=== PATIENT | female | born 1995 | race African-American/Black ===

== ENCOUNTER 2019-04-05 20:44 | Emergency (ER) | payer MEDICAID ==
[~2019-04-05] VITALS: Ht 162.6 cm; Wt 53.0 kg
[2019-04-05] MEDS ORDERED: ONDANSETRON HCL 4MG/2ML INJ IV STA (22:14)
[2019-04-05] MEDS ORDERED: SODIUM CHLORIDE 0.9% 1,000 ML IV ONE (22:14)
[2019-04-05] MEDS ORDERED: LORAZEPAM 2MG/ML CPJ IV ONE (22:15)
[2019-04-05 22:54] LABS: HEMATOCRIT. 30.5 % (36.0-48.0); HEMOGLOBIN. 9.6 g/dL (12.0-16.0); MEAN CORPUSCULAR HEMOGLOBIN 21.7 pg (28.0-32.0); MEAN CORPUSCULAR VOLUME 68.9 fL (81.0-99.0); MEAN PLATELET VOLUME 8.8 fl (7.4-10.4); PLATELET 358 x1000/uL (130-400); RED BLOOD CELL COUNT 4.42 mill/uL (4.2-5.4); RED CELL DISTRIBUTION WIDTH 20.8 % (11.6-14.6)
[2019-04-05 23:01] LABS: CHLORIDE 109 mEq/L (98-107)
[2019-04-05 23:05] LABS: ETHANOL BLOOD < 10 mg/dL
[2019-04-05 23:08] LABS: HCG SCREEN NEGATIVE
[2019-04-05 23:11] LABS: *AMPHETAMINES SCREEN URINE NEGATIVE (NEGATIVE); *BARBITURATES SCREEN URINE NEGATIVE (NEGATIVE); *COCAINE SCREEN URINE NEGATIVE (NEGATIVE)
[2019-04-05 23:12] LABS: *BENZODIAZEPINES SCREEN URINE NEGATIVE (NEGATIVE); METHADONE URINE SCREEN NEGATIVE (NEGATIVE); OPIATES URINE SCREEN NEGATIVE (NEGATIVE); PHENCYCLIDINE URINE SCREEN NEGATIVE (NEGATIVE)
[2019-04-05 23:13] LABS: CANNABINOID URINE SCREEN PRESUMTIVE POSITIVE (NEGATIVE)
[2019-04-05 23:24] LABS: PLATELET ESTIMATE NORMAL
[2019-04-06 01:01] VITALS: BP 114/70
== END 2019-04-06 01:02 | disposition home or self-care (01) ==
LOC: ER 20:44
DX: R06.02 Shortness of breath (principal); E86.0 Dehydration; D64.9 Anemia, unspecified; R06.4 Hyperventilation
CPT/HCPCS: 36415; 71045; 80053; 80305; 80320; 83690; 84703; 85025; 93005; 96361; 96374; 96375; 99284; J2060; J2405; J7030; G0480

== ENCOUNTER 2020-08-18 12:15 | Emergency (ER) | payer MEDICAID ==
[~2020-08-18] VITALS: Ht 167.6 cm; Wt 56.0 kg
[2020-08-18] MEDS ORDERED: KETOROLAC 60MG/2ML VIAL IM STA (12:26)
[2020-08-18 13:09] LABS: CLARITY URINE CLEAR (CLEAR); COLOR URINE YELLOW (YELLOW); KETONES URINE 1+ (NEGATIVE); LEUKOCYTE ESTERASE URINE NEGATIVE (NEGATIVE); NITRITE URINE NEGATIVE (NEGATIVE); OCCULT BLOOD URINE NEGATIVE (NEGATIVE); PH URINE 5.5 (4.5-8.0); PROTEIN URINE 2+ (NEGATIVE)
[2020-08-18 13:18] LABS: BASOPHILS % 0.8 % (0.0-2.0); HEMATOCRIT. 33.1 % (36.0-48.0); HEMOGLOBIN. 11.2 g/dL (12.0-16.0); LYMPHOCYTES % 16.4 % (20.0-50.0); MEAN CORPUSCULAR HEMOGLOBIN 27.4 pg (28.0-32.0); MEAN CORPUSCULAR VOLUME 80.6 fL (81.0-99.0); MEAN PLATELET VOLUME 8.5 fl (7.4-10.4); MONOCYTES % 4.5 % (2.0-8.0); NEUTROPHILS % 75.3 % (40.0-76.0); PLATELET 281 x1000/uL (130-400); RED CELL DISTRIBUTION WIDTH 19.2 % (11.6-14.6)
[2020-08-18 13:28] LABS: CHLORIDE 114 mEq/L (98-107)
[2020-08-18] MEDS ORDERED: DICL50TA9 MT (14:24)
[2020-08-18] MEDS ORDERED: NITR-87 MT (14:24)
[2020-08-18 14:34] VITALS: BP 130/80
== END 2020-08-18 14:35 | disposition home or self-care (01) ==
LOC: ER 12:15
DX: R51.9 Headache, unspecified (principal); N39.0 Urinary tract infection, site not specified; Z88.5 Allergy status to narcotic agent
CPT/HCPCS: 36415; 70450; 80053; 81003; 81025; 85025; 96372; 99284; J1885

== ENCOUNTER 2021-05-23 09:00 | Emergency (ER) | payer MEDICAID, OTHER ==
[~2021-05-23] VITALS: Ht 170.2 cm; Wt 54.0 kg
[~2021-05-23 09:00] MED LIST: DICL50TA9 MT; NITR-87 MT
[2021-05-23] MEDS ORDERED: IBUPROFEN 600MG TABLET PO ONE (09:15)
[2021-05-23 09:40] VITALS: BP 115/75
[2021-05-23 10:25] LABS: CLARITY URINE CLOUDY (CLEAR); COLOR URINE YELLOW (YELLOW); KETONES URINE TRACE (NEGATIVE); LEUKOCYTE ESTERASE URINE 2+ (NEGATIVE); NITRITE URINE NEGATIVE (NEGATIVE); OCCULT BLOOD URINE NEGATIVE (NEGATIVE); PH URINE 7.5 (4.5-8.0); PROTEIN URINE NEGATIVE (NEGATIVE); SPECIFIC GRAVITY URINE 1.021 (1.005-1.030)
== END 2021-05-23 11:44 | disposition left against medical advice (07) ==
LOC: ER 09:00
DX: N39.0 Urinary tract infection, site not specified (principal); A59.9 Trichomoniasis, unspecified; Z20.822 Contact with and (suspected) exposure to COVID-19; Z90.49 Acquired absence of other specified parts of digestive tract; Z88.5 Allergy status to narcotic agent
CPT/HCPCS: 81003; 81025; 87426; 99283

== ENCOUNTER 2021-09-08 15:56 | Emergency (ER) | payer OTHER ==
[~2021-09-08] VITALS: Ht 170.2 cm; Wt 57.0 kg
[2021-09-08 16:34] VITALS: BP 127/81
[2021-09-08 17:34] LABS: CLARITY URINE CLOUDY (CLEAR); COLOR URINE YELLOW (YELLOW); KETONES URINE 3+ (NEGATIVE); LEUKOCYTE ESTERASE URINE 1+ (NEGATIVE); NITRITE URINE NEGATIVE (NEGATIVE); OCCULT BLOOD URINE NEGATIVE (NEGATIVE); PH URINE 6.5 (4.5-8.0); PROTEIN URINE TRACE (NEGATIVE); SPECIFIC GRAVITY URINE 1.027 (1.005-1.030)
[2021-09-08] MEDS ORDERED: ACETAMINOPHEN 325MG TABLET PO PRN (17:45)
== END 2021-09-08 18:58 | disposition left against medical advice (07) ==
LOC: ER 15:56
DX: Z53.21 Procedure and treatment not carried out due to patient leaving prior to being seen by health care provider (principal)
CPT/HCPCS: 81003; 93005; 99284

== ENCOUNTER 2022-02-25 01:57 | Observation (INO) | payer OTHER ==
[~2022-02-25] VITALS: Ht 167.6 cm; Wt 64.9 kg
[2022-02-25] MEDS: LACTATED RINGERS 1,000 ML IV SCH ×3 (02:45→03:24)
[2022-02-25 03:16] LABS: CLARITY URINE CLOUDY (CLEAR); COLOR URINE YELLOW (YELLOW); KETONES URINE NEGATIVE (NEGATIVE); LEUKOCYTE ESTERASE URINE 3+ (NEGATIVE); NITRITE URINE NEGATIVE (NEGATIVE); OCCULT BLOOD URINE 1+ (NEGATIVE); PH URINE 6.5 (4.5-8.0); PROTEIN URINE TRACE (NEGATIVE); SPECIFIC GRAVITY URINE 1.014 (1.005-1.030)
[2022-02-25] MEDS ORDERED: PREN1TAB78 PO (03:20)
[2022-02-25] MEDS ORDERED: FERR325T6 PO (03:20)
[2022-02-25] MEDS ORDERED: CEFAZOLIN 2,000 MG in DEXT 5% WATER 100 ML IV NR (04:30)
[2022-02-25] MEDS: TERBUTALINE SULFATE 1MG/ML VIAL SUBCUT PRN ×2 (04:37→05:19)
== END 2022-02-25 07:20 | disposition home or self-care (01) ==
LOC: 8 EST LDRP 01:57
PROVIDERS: ADMIT Obstetrics & Gynecology; ATTEND Obstetrics & Gynecology
DX: O26.893 Other specified pregnancy related conditions, third trimester (principal); R10.9 Unspecified abdominal pain; O62.9 Abnormality of forces of labor, unspecified; O99.891 Other specified diseases and conditions complicating pregnancy; M54.9 Dorsalgia, unspecified; Z3A.34 34 weeks gestation of pregnancy
CPT/HCPCS: 59025; 76805; 76818; 81003; 87086; 96361; 96365; 96372; G0378; J0690; J3105; J7060; 96360; 99281; G0379

== ENCOUNTER 2022-04-04 20:18 | Observation (INO) | payer OTHER ==
[~2022-04-04] VITALS: Ht 170.2 cm; Wt 69.9 kg
[~2022-04-04 20:18] MED LIST changes: -DICL50TA9 MT; +FERR325T6 PO; -NITR-87 MT; +PREN1TAB78 PO
[2022-04-04] MEDS ORDERED: PNV1TAB.3 PO (20:48)
[2022-04-04] MEDS ORDERED: ACETAMINOPHEN 650MG/20.3ML UDC PO PRN (22:00)
[2022-04-04 22:07] LABS: BASOPHILS % 0.3 % (0.0-2.0); EOSINOPHILS % 0.3 % (0.0-5.0); HEMATOCRIT. 24.7 % (36.0-48.0); HEMOGLOBIN. 7.8 g/dL (12.0-16.0); LYMPHOCYTES % 13.4 % (20.0-50.0); MEAN CORPUSCULAR HEMOGLOBIN 21.2 pg (28.0-32.0); MEAN PLATELET VOLUME 8.5 fl (7.4-10.4); MONOCYTES % 6.9 % (2.0-8.0); NEUTROPHILS % 79.1 % (40.0-76.0); PLATELET 359 x1000/uL (130-400); RED BLOOD CELL COUNT 3.69 mill/uL (4.2-5.4)
[2022-04-04 22:17] LABS: CHLORIDE 106 mEq/L (98-107)
[2022-04-04 22:40] LABS: PLATELET ESTIMATE NORMAL
[2022-04-04] MEDS: LACTATED RINGERS 1,000 ML IV SCH (22:45)
[2022-04-04] MEDS: ACETAMINOPHEN 325MG TABLET PO PRN (22:45)
[2022-04-05] MEDS ORDERED: TERBUTALINE SULFATE 1MG/ML VIAL SUBCUT ONE (02:45)
[2022-04-05] MEDS ORDERED: BUTORPHANOL TARTRATE 2 MG/ML VIAL IV PRN (03:45)
[2022-04-05 03:55] VITALS: BP 117/67
[2022-04-05] MEDS: LACTATED RINGERS 1,000 ML IV SCH (07:22)
[2022-04-05] MEDS: ACETAMINOPHEN 325MG TABLET PO PRN (10:51)
[2022-04-05 14:21] LABS: CLARITY URINE CLOUDY (CLEAR); COLOR URINE YELLOW (YELLOW); KETONES URINE NEGATIVE (NEGATIVE); LEUKOCYTE ESTERASE URINE 3+ (NEGATIVE); NITRITE URINE NEGATIVE (NEGATIVE); OCCULT BLOOD URINE 1+ (NEGATIVE); PH URINE 6.5 (4.5-8.0); PROTEIN URINE NEGATIVE (NEGATIVE); SPECIFIC GRAVITY URINE 1.006 (1.005-1.030); UROBILINOGEN URINE 0.2 E.U./dL (0.2-1.0)
[2022-04-08] MEDS ORDERED: METR-167 MT (14:57)
== END 2022-04-05 14:30 | disposition home or self-care (01) ==
LOC: 8 EST LDRP 20:18
PROVIDERS: ADMIT Obstetrics & Gynecology; ATTEND Obstetrics & Gynecology
DX: O60.00 Preterm labor without delivery, unspecified trimester (principal); Z3A.36 36 weeks gestation of pregnancy; Z79.899 Other long term (current) drug therapy
CPT/HCPCS: 36415; 59025; 76805; 76818; 80053; 81003; 85025; 87086; 96361; 96372; 96374; 99281; J0595; J3105; 59412; 96360; G0378; J7120

== ENCOUNTER 2022-04-29 01:07 | Inpatient (IN) | payer OTHER ==
[~2022-04-29] VITALS: Ht 170.2 cm; Wt 74.8 kg
[~2022-04-29 01:07] MED LIST changes: +METR-167 MT; +PNV1TAB.3 PO
[2022-04-29] MEDS ORDERED: LACTATED RINGERS 1,000 ML IV SCH (01:45)
[2022-04-29] MEDS ORDERED: LIDOCAINE HCL 2%/EPINEPHRINE 1:100,000 20 ML VIAL INFIL ONE (02:00)
[2022-04-29] MEDS ORDERED: PENICILLIN G POTASSIUM 5 MMU in DEXT 5% WATER 100 ML IV SCH ×2 (02:30→02:45)
[2022-04-29 02:45] LABS: BASOPHILS % 0.6 % (0.0-2.0); HEMATOCRIT. 21.8 % (36.0-48.0); LYMPHOCYTES % 24.2 % (20.0-50.0); MEAN CORPUSCULAR HEMOGLOBIN 20.8 pg (28.0-32.0); MEAN CORPUSCULAR VOLUME 66.2 fL (81.0-99.0); MONOCYTES % 7.1 % (2.0-8.0); NEUTROPHILS % 67.1 % (40.0-76.0); PLATELET 249 x1000/uL (130-400); RED BLOOD CELL COUNT 3.29 mill/uL (4.2-5.4); RED CELL DISTRIBUTION WIDTH 21.6 % (11.6-14.6)
[2022-04-29] MEDS ORDERED: NALOXONE HCL 0.4 MG/ML 1ML VIAL IM PRN (02:45)
[2022-04-29] MEDS ORDERED: CARBOPROST TROMETHAMINE 250 MCG/ML AMPUL IM PRN (02:45)
[2022-04-29] MEDS ORDERED: BUTORPHANOL TARTRATE 2 MG/ML VIAL IV PRN (02:45)
[2022-04-29] MEDS ORDERED: NALOXONE HCL 0.4 MG/ML 1ML VIAL IV PRN (02:45)
[2022-04-29] MEDS ORDERED: METHYLERGONOVINE MALEATE 0.2 MG/ML IM PRN (02:45)
[2022-04-29] MEDS ORDERED: RHO(D) IMMUNE GLOBULIN 300 MCG/SYR IM ONE (02:45)
[2022-04-29] MEDS ORDERED: PENICILLIN G POTASSIUM 2.5 MMU in DEXTROSE 5% WATER 50 ML IV SCH ×2 (02:45→06:30)
[2022-04-29] MEDS: LACTATED RINGERS 1,000 ML IV SCH ×2 (02:45→06:27)
[2022-04-29] MEDS ORDERED: DIPHENHYDRAMINE 50MG/ML VIAL IM PRN (02:45)
[2022-04-29 02:49] LABS: HEMOGLOBIN. 6.8 g/dL (12.0-16.0)
[2022-04-29 02:55] LABS: PARTIAL THROMBOPLASTIN TIME 30.1 sec (23.4-31.0); PROTHROMBIN TIME 10.4 sec (9.6-11.0)
[2022-04-29] MEDS: OXYTOCIN 30 UNITS/500ML NS PMX 500 ML IV SCH ×2 (03:11→10:49)
[2022-04-29 03:24] LABS: HEPATITIS B SURFACE ANTIGEN NEGATIVE
[2022-04-29] MEDS ORDERED: ROPIVACAINE HCL/PF EPIDURAL 200 ML EPI ONE (03:24)
[2022-04-29] MEDS ORDERED: ROPIVACAINE HCL/PF EPIDURAL 200 ML EPI SCH (03:30)
[2022-04-29 04:00] LABS: CLARITY URINE CLEAR (CLEAR); COLOR URINE YELLOW (YELLOW); KETONES URINE NEGATIVE (NEGATIVE); LEUKOCYTE ESTERASE URINE 1+ (NEGATIVE); NITRITE URINE NEGATIVE (NEGATIVE); OCCULT BLOOD URINE NEGATIVE (NEGATIVE); PH URINE 7.5 (4.5-8.0); PROTEIN URINE NEGATIVE (NEGATIVE); SPECIFIC GRAVITY URINE 1.011 (1.005-1.030)
[2022-04-29 04:06] LABS: PLATELET ESTIMATE NORMAL
[2022-04-29 04:11] LABS: *AMPHETAMINES SCREEN URINE NEGATIVE (NEGATIVE); *BARBITURATES SCREEN URINE NEGATIVE (NEGATIVE); *BENZODIAZEPINES SCREEN URINE NEGATIVE (NEGATIVE); *COCAINE SCREEN URINE NEGATIVE (NEGATIVE); CANNABINOID URINE SCREEN NEGATIVE (NEGATIVE); METHADONE URINE SCREEN NEGATIVE (NEGATIVE); OPIATES URINE SCREEN NEGATIVE (NEGATIVE); PHENCYCLIDINE URINE SCREEN NEGATIVE (NEGATIVE)
[2022-04-29] MEDS ORDERED: BENZOCAINE/LANOLIN/ALOE VERA SPRAY TOP PRN (09:30)
[2022-04-29] MEDS ORDERED: IBUPROFEN 400MG TABLET PO PRN (09:30)
[2022-04-29] MEDS ORDERED: RHO(D) IMMUNE GLOBULIN 300 MCG/SYR IM PRN (09:30)
[2022-04-29] MEDS: IBUPROFEN 800MG TABLET PO PRN ×2 (11:41→18:27)
[2022-04-29 12:30] VITALS: BP 107/66
[2022-04-29 13:30] VITALS: BP 110/68
[2022-04-29 17:55] VITALS: BP 107/75
[2022-04-29 20:00] VITALS: BP 107/71
[2022-04-30] MEDS: IBUPROFEN 800MG TABLET PO PRN ×3 (00:40→22:45)
[2022-04-30 04:30] VITALS: BP 100/62
[2022-04-30 06:47] LABS: BASOPHILS % 0.8 % (0.0-2.0); EOSINOPHILS % 0.8 % (0.0-5.0); LYMPHOCYTES % 18.1 % (20.0-50.0); MEAN CORPUSCULAR HEMOGLOBIN 21.1 pg (28.0-32.0); MEAN CORPUSCULAR VOLUME 66.5 fL (81.0-99.0); MEAN PLATELET VOLUME 8.6 fl (7.4-10.4); MONOCYTES % 6.9 % (2.0-8.0); NEUTROPHILS % 73.4 % (40.0-76.0); PLATELET 231 x1000/uL (130-400); RED BLOOD CELL COUNT 3.09 mill/uL (4.2-5.4); RED CELL DISTRIBUTION WIDTH 21.6 % (11.6-14.6)
[2022-04-30 08:00] VITALS: BP 97/63
[2022-04-30 08:04] LABS: HEMOGLOBIN. 6.5 g/dL (12.0-16.0)
[2022-04-30 08:05] LABS: HEMATOCRIT. 20.6 % (36.0-48.0)
[2022-04-30] MEDS: PRENATAL VIT/FE FUMARATE/FA TABLET PO SCH (08:46)
[2022-04-30] MEDS: FERROUS SULFATE 325MG TABLET PO SCH ×3 (08:46→17:53)
[2022-04-30 16:00] VITALS: BP 99/62
[2022-04-30 19:30] VITALS: BP 124/80
[2022-05-01 04:00] VITALS: BP 105/66
[2022-05-01] MEDS: PRENATAL VIT/FE FUMARATE/FA TABLET PO SCH (07:50)
[2022-05-01] MEDS: IBUPROFEN 800MG TABLET PO PRN (07:50)
[2022-05-01] MEDS: FERROUS SULFATE 325MG TABLET PO SCH (07:50)
[2022-05-01 08:00] VITALS: BP 101/64
== END 2022-05-01 13:10 | disposition home or self-care (01) | DRG 560 ==
LOC: 8 EST LDRP 01:07 → OBSVTOIN 01:07 → 8EST 11:15
PROVIDERS: ADMIT Obstetrics & Gynecology; ATTEND Obstetrics & Gynecology
PROC: 10E0XZZ Delivery of Products of Conception, External Approach (ICD-10-PCS; principal; 2022-04-29)
PROC: 0HQ9XZZ Repair Perineum Skin, External Approach (ICD-10-PCS; 2022-04-29)
DX: O48.0 Post-term pregnancy (principal); Z37.0 Single live birth; D62 Acute posthemorrhagic anemia; Z3A.40 40 weeks gestation of pregnancy; O70.0 First degree perineal laceration during delivery; O99.02 Anemia complicating childbirth
CPT/HCPCS: 36415; 76805; 80305; 81003; 85025; 86592; 86703; 86762; 86850; 86900; 86920; 87340; 87426; 99281; J2540; J2795; J3490; J7060; A4315; J2590